=== PATIENT | female | born 1955 | race Caucasian/White ===

== ENCOUNTER 2024-09-13 15:39 | Emergency (ER) | payer BC ==
[~2024-09-13 15:39] MED LIST: SERTRALINE HCL50 MG PO
== END 2024-09-13 16:45 | disposition left against medical advice (07) ==
LOC: ER 16:45
DX: M54.9 Dorsalgia, unspecified (principal); Z53.21 Procedure and treatment not carried out due to patient leaving prior to being seen by health care provider